=== PATIENT | female | born 1990 | race Caucasian/White ===

== ENCOUNTER 2020-04-02 14:54 | Emergency (ER) | payer OTHER ==
[~2020-04-02] VITALS: Ht 160 cm; Wt 76.1 kg
[2020-04-02 15:08] VITALS: BP 114/77
--- NOTE | 2020-04-02 16:48 | NUR ---
TAMICA IN ROOM FOR REEVAL.
== END 2020-04-02 17:25 | disposition home or self-care (01) ==
LOC: ED 15:38
DX: S92.514A Nondisplaced fracture of proximal phalanx of right lesser toe(s), initial encounter for closed fracture (principal); W22.8XXA Striking against or struck by other objects, initial encounter; Y93.89 Activity, other specified; Y92.009 Unspecified place in unspecified non-institutional (private) residence as the place of occurrence of the external cause; Y99.8 Other external cause status
CPT/HCPCS: 99283